=== PATIENT | female | born 1965 | race Caucasian/White ===

== ENCOUNTER 2019-02-22 08:27 | Inpatient (IN) | payer MEDICARE, SELFPAY ==
[2019-02-22] MEDS ORDERED: Ondansetron ODT 4 MG TAB SL PRN (09:00)
[2019-02-22] MEDS ORDERED: Sodium Chloride 0.9% 1,000 ML IV SCH (09:00)
[2019-02-22] MEDS ORDERED: Ondansetron PF 4 MG/2 ML Vial IVP PRN ×2 (09:00→15:10)
[2019-02-22 09:03] LABS: Actual Bicarbonate (HCO3a) 21.3 mEq/L (22-28); Base Excess (BEa) -4.2 mEq/L (-2.0 to +3.0); CO2 Tension 40.5 mmHg (35.0-45.0); Calcium, Ionized 1.12 mmol/L (1.12-1.30); Carboxyhemoglobin (COHb) 2.2 gm% (0.0-3.0); Hemoglobin (Hb) 13.1 g/dL (12.0-16.0); O2 Tension (PaO2) 73.6 mmHg (80.0-100.0); Potassium - ABG Lab 3.79 mmol/L (3.70-5.30); pH, Arterial 7.34 (7.35-7.45)
[2019-02-22 09:04] LABS: ALV-art Gradient 25.505 (0-20); Puncture Site LRA
[2019-02-22] MEDS ORDERED: Sodium Bicarb 50 MEQ/50 ML VIAL ONE (09:17)
[2019-02-22 09:20] LABS: Bacteria/HPF None Seen HPF (None Seen); Bilirubin Negative (Negative); Blood, Urine Negative (Negative); Clarity Turbid (Clear); Glucose, Urine (Dipstick) Normal (Negative); Leukocyte Negative Leu/uL (Negative); Mucous/LPF 1+ LPF (<2+); Nitrite Negative (Negative); Protein, Urine (Dipstick) 70 mg/dL (Neg-Trace); RBC/HPF 0-3 HPF (0-3); Squamous Epithelial 0-3 HPF (0-3); Urobilinogen Normal mg/dL (Less than 2)
[2019-02-22 12:58] VITALS: BMI 35.4
[2019-02-22] MEDS ORDERED: Bisacodyl 10 MG SUPP PR PRN (15:10)
[2019-02-22] MEDS ORDERED: Acetaminophen 650 MG Suppository PR PRN (15:10)
[2019-02-22] MEDS ORDERED: hydrALAZINE 20 MG/ML VIAL SLOW IVP PRN (15:27)
[2019-02-22] MEDS ORDERED: Loratadine 10 MG TAB PO PRN (15:27)
[2019-02-22] MEDS ORDERED: Diabetic Tussin 200 MG/10 ML UDCUP PO PRN (15:27)
[2019-02-22] MEDS ORDERED: Metoclopramide HCl 10 MG/2 ML VIAL IVP PRN (15:27)
[2019-02-22] MEDS ORDERED: Sodium Chloride 0.65% Nasal 44 ML BOT EA NARE PRN (15:27)
[2019-02-22] MEDS ORDERED: Artificial Tears 18 DROP/0.9 ML EA EYE PRN (15:27)
[2019-02-22] MEDS ORDERED: Loperamide HCl 2 MG CAP PO PRN (15:27)
[2019-02-22] MEDS ORDERED: Calcium Carbonate 500 MG ChewTAB PO PRN (15:27)
[2019-02-22] MEDS ORDERED: Cepastat Lozenges 1 LOZ PO PRN (15:27)
[2019-02-22] MEDS ORDERED: Acetaminophen 325 MG TAB PO PRN (15:28)
--- NOTE | 2019-02-22 16:10 | HP ---
PRIMARY CARE PHYSICIAN: [facility]. REASON FOR ADMISSION: Acute toxic encephalopathy, Seroquel drug overdose, suicidal ideation. HISTORY OF PRESENT ILLNESS: A 54-year-old female who has underlying history of anxiety and depression. The patient took unknown amount of Seroquel at 2:00 a.m. Subsequently, the patient was somnolent, lethargic. Paramedics took her to [facility]. Over there, the patient was hypotensive, tachycardic, and drowsy. The patient was given IV fluid and subsequently at that moment transiently Levophed drip was given and her blood pressure improved. Subsequently, the patient was transferred to our emergency room, her blood pressure was improved to 100. She had Herrera catheter done at [facility]. The patient was admitted to [facility]. I saw this patient at bedside. The patient reports that she is frustrated with a lot of thing at home. She was more anxious and more depressed. She wanted to cut her life and that is why she took 6 to 7 tablets of Seroquel 400 mg. when I saw this patient, at that time, her blood pressure has been improved. She was more alert. She had routine blood test done at [facility] as well as in our emergency room. All reviewed by me. The patient has bedside sitter and she is in ICU at this point. REVIEW OF SYSTEMS: CONSTITUTIONAL: Negative for weight loss or gain, ability to conduct usual activities. SKIN: Negative for rash, itching. EYES: Negative for double vision, pain. ENT/MOUTH: Negative for nose bleeding, neck stiffness, pain, tenderness. CARDIOVASCULAR: Negative for palpitations, dyspnea on exertion, orthopnea. RESPIRATORY: Negative for shortness of breath, wheezing, cough, hemoptysis, fever or night sweats. GASTROINTESTINAL: Negative for poor appetite, abdominal pain, heartburn, nausea, vomiting, constipation, or diarrhea. GENITOURINARY: Negative for urgency, frequency, dysuria, nocturia. MUSCULOSKELETAL: Negative for pain, swelling. NEUROLOGIC/PSYCHIATRIC: Negative for anxiety, depression. ALLERGY/IMMUNOLOGIC: Negative for skin rash, bleeding tendency. Please see my HPI for pertinent positives and negatives. All other review of systems reviewed and negative except as mentioned in HPI. PAST MEDICAL HISTORY: Hypothyroidism, gastroesophageal reflux disease, chronic hepatitis C, hypertension, dyslipidemia, rheumatoid arthritis, degenerative joint disease, COPD, CKD stage 2. PAST SURGICAL HISTORY: Left AKA, ACL repair, left arm replantation, , hysterectomy. PAST PSYCHIATRIC HISTORY: Anxiety and depression. SOCIAL HISTORY: The patient is , lives at home with her . She drinks alcohol socially. She smokes about half pack per day. FAMILY HISTORY: No strong family history of premature coronary artery disease, stroke, or cancer. ALLERGIES: DEMEROL, GABAPENTIN. CURRENT HOME MEDICATIONS: 1. Albuterol sulfate two puffs q.6 hourly. 2. Clonazepam 1 mg daily. 3. Flexeril 10 mg three times daily p.r.n. 4. Nystatin topical application b.i.d. 5. Seroquel. PHYSICAL EXAMINATION: VITAL SIGNS: Currently, blood pressure 122/67, pulse 103, respiratory rate 20, temperature 96.8, saturation 100% on room air. Weight 92.5 kg. GENERAL: The patient is currently anxious, alert, awake, follows commands. No obvious acute distress. HEENT: Head; normocephalic, atraumatic. Eyes; pupils round, reactive to light. Extraocular muscle intact. ENT; oropharynx within normal limits. Moist mucous membranes. No oral lesion. No pharyngeal erythema. No exudate. NECK: Supple. No JVD. No thyromegaly. No carotid bruit. LUNGS: Clear to auscultation without any rhonchi or rales. CARDIAC: S1, S2. Regular. Slight tachycardia. No murmur. No gallop. No rub. ABDOMEN: Soft. Bowel sounds present. Nontender. Nondistended. No organomegaly. No mass. No suprapubic tenderness. BACK: Unremarkable. No CVA tenderness. EXTREMITIES: Upper extremities; passive movement of all joints are normal. Lower extremities; left AKA. Right lower extremity within normal limit. NEUROLOGIC: Nonfocal examination. SKIN: No skin rash. HEMATOLOGICAL SYSTEM: No lymphadenopathy. PSYCHIATRIC: Anxious affect. SIGNIFICANT LABORATORY DATA: EKG showing normal sinus rhythm, slightly prolonged QT interval. ABG; pH 7.34, CO2 of 40.5, O2 of 73.6, bicarb 21.3, saturation 94.1%. Urinalysis unremarkable. [facility] record completely reviewed. Urine drug screen positive for amphetamine, cocaine. Glucose 110, BUN 16, creatinine 1.18, sodium 140, potassium 3.8, chloride 104, carbon dioxide 24, calcium 9.2, alkaline phosphatase 93, AST 54, ALT 104, albumin 4.0. Tylenol less than 3. Salicylate less than 5. Alcohol level 11. Troponin negative. WBC 9.8, hemoglobin 13.4, platelet 226. Chest x-ray based on my review, no acute cardiopulmonary process. EMERGENCY ROOM COURSE: The patient is given IV fluid and dopamine and Levophed. ASSESSMENT: 1. Suicidal ideation. 2. Intentional drug overdose due to suicidal attempt. 3. Hypotension, resolved. 4. Acute toxic encephalopathy, resolved. 5. Anxiety and depression. 6. Chronic obstructive pulmonary disease. 7. Tobacco abuse disorder. 8. Left above-knee amputation, status. PLAN: Close observation in IMCU. If the patient remains vitals sears stable, then we will consider transferring her out to medical floor. The patient will need bedside sitter. We will monitor on telemetry floor. Her EKG is unremarkable. We will monitor on telemetry floor. If the patient remained stable, then we will consider MHMR consultation and the patient may need placement in inpatient psychiatric facility. The patient is given counseling to avoid polysubstance abuse. Deep venous thrombosis prophylaxis, Lovenox 40 mg subcu daily. GI prophylaxis, Pepcid 20 mg p.o. b.i.d. CODE STATUS: The patient is full code. DISPOSITION PLAN: Based on clinical course, plan of care discussed with the patient in detail. Job ID: [id number]
[2019-02-22] MEDS: Sodium Chloride 0.9% 1,000 ML IV SCH (20:29)
[2019-02-22] MEDS: Famotidine 20 MG TAB PO SCH (20:30)
[2019-02-22] MEDS ORDERED: Famotidine/PF 20 mg/2ml Vial SLOW IVP SCH (21:00)
[2019-02-23] MEDS: Nicotine 7 MG PATCH TD SCH ×3 (00:58→10:03)
[2019-02-23] MEDS: Sodium Chloride 0.9% 1,000 ML IV SCH (01:10)
[2019-02-23] MEDS ORDERED: Ibuprofen 600 MG TAB PO SCH (04:00)
[2019-02-23] MEDS ORDERED: Cyclobenzaprine 10 MG TAB PO SCH (04:00)
[2019-02-23 04:39] LABS: #Eosinphils 0.4 thou/uL (0.0-0.7); #Lymphocytes 3.2 thou/uL (1.20-3.40); #Monocytes 0.6 thou/uL (0.11-0.59); #Neutrophils 3.3 thou/uL (1.40-6.50); %Basophils 0.6 % (0.0-1.0); %Eosinophils 5.7 % (0.0-10.0); %Lymphocytes 42.2 % (21.0-51.0); %Monocytes 7.8 % (0.0-10.0); %Neutrophils 43.7 % (42.0-75.0); Hemoglobin 12.5 g/dL (12.0-16.0); Mean Corpuscular Hemoglobin 31.2 pg (27.0-31.0); Mean Corpuscular Volume 91.8 fL (78.0-98.0); Mean Platelet Volume 7.3 fL (7.4-10.4); Platelet Count 197 thou/uL (130-400); RBC Distribution Width 12.5 % (11.5-14.5); White Blood Cell (WBC) Count 7.5 thou/uL (4.8-10.8)
[2019-02-23 04:52] LABS: ALT (SGPT) 67 U/L (8-55); AST (SGOT) 31 U/L (5-34); Albumin 3.5 g/dL (3.5-5.0); Alkaline Phosphatase 83 U/L (40-150); Anion Gap 8 mmol/L (10-20); BUN (Urea Nitrogen) 16 mg/dL (9.8-20.1); Bilirubin, Total 0.4 mg/dL (0.2-1.2); Calc. Creatinine Clearance 117 mL/min (70-130); Calcium 8.8 mg/dL (7.8-10.44); Carbon Dioxide 23 mmol/L (22-29); Chloride 113 mmol/L (98-107); Estimated GFR-MDRD 73; Globulin 2.4 g/dL (2.4-3.5); Glucose 109 mg/dL (70-105); Protein, Total 5.9 g/dL (6.0-8.3); Sodium 140 mmol/L (136-145)
[2019-02-23] MEDS: Enoxaparin Sodium 40 MG/0.4 ML SYRINGE SC SCH (08:52)
[2019-02-23] MEDS: Famotidine 20 MG TAB PO SCH ×2 (08:53→20:27)
--- NOTE | 2019-02-23 09:00 | PRG ---
DATE OF SERVICE: 02/23/2019 SUBJECTIVE: María Frank is a 54-year-old female who took an overdose of Seroquel. This morning, she is no longer encephalopathic. No respiratory distress. Except of some back pain, she is better. OBJECTIVE: VITAL SIGNS: Temperature is 97, pulse is 90, blood pressure 164/110, saturations 98% on room air. GENERAL: She is sitting up on side of the bed, eating breakfast. CHEST: No wheezing or crackles. CARDIAC: Normal S1, S2. No gallops. ABDOMEN: Soft. ASSESSMENT: Presumed overdose on Seroquel. Encephalopathy resolved. PLAN: She can be transferred out of the ICU. Probably needs counseling. Minimize sedation. Discontinue IV fluids. Job ID: [id number]
--- NOTE | 2019-02-23 09:43 | CON ---
DATE OF CONSULTATION: HISTORY OF PRESENT ILLNESS: María Frank is a 54-year-old, morbidly obese female, 206 pounds, 5 feet 4 inches, BMI greater than 30, who apparently was transferred from ER in [place] to a local ER over here with a diagnosis of overdose on Seroquel. Apparently 2 clock in the morning, she took what appears to be 12 tablets of 400 mg Seroquel, found out, call 911. She was taken to the ER. She is unable to be transferred to another hospital associated with [facility]. She was, therefore, sent to [facility], she is now in the ICU. She is a little bit more responsive, awake. She wanted to have some ice chips. Initial vital signs, sinus tachycardia, blood pressure 105/70, responsive to pain. PAST MEDICAL HISTORY: Hypothyroidism, reflux, hepatitis C, hyperlipidemia, hypertension, rheumatoid arthritis, DJD COPD, asthma, tobacco abuse, and renal failure. PAST SURGICAL HISTORY: ACL repair, left AK amputation, left arm replantation, , hysterectomy, anxiety, and depression. SOCIAL HISTORY: Tobacco half pack a day, substance abuse, alcohol abuse. ALLERGIES: DEMEROL AND GABAPENTIN. HOME MEDICATIONS: 1. Albuterol. 2. Clonazepam 1 mg. 3. Flexeril 10. 4. Nystatin. REVIEW OF SYSTEMS: Otherwise unremarkable. PHYSICAL EXAMINATION: VITAL SIGNS: Blood pressure 113/76, sats are 98% on room air, pulse 103, and respiratory rate 13. GENERAL: She is awake, alert, and responsive. She has a left BK amputation. In right leg, no edema. Moves. Obese. CHEST: No wheezing or crackles. CARDIAC: Normal S1 and S2. No gallops. ABDOMEN: No masses. LABORATORY DATA: A pO2 was 73, pCO2 of 40, pH 7.34. Her lytes were normal in [place]. Additional lab shows chest x-ray questionable infiltrate. White count 9000, hemoglobin and hematocrit are 13 and 40. Creatinine was minimally 1.18 elevated. AST 54, ALT 104. She had a urine drug screen, which I am told had evidence of methamphetamine and cocaine. I have been post knee unable to see the report, which I will verify once I have been able to see the report. IMPRESSION: 1. Metabolic encephalopathy secondary to overdose Seroquel. 2. Substance abuse, cocaine and methamphetamine. 3. Multiple medical problems with extensively well outlined history of depression, history of chronic obstructive pulmonary disease, history of asthma, and history of rheumatoid arthritis. Pulmonary sears, avoid at this time any excessive sedation. Continue IV fluids. Supportive care. We will try and obtain MR consult. Consultation note, 70 minutes, 50% direct patient care. Job ID: [id number]
[2019-02-23] MEDS: HYDROcodone/Acetaminophen 5/325 mg Tablet PO PRN ×2 (10:22→17:59)
--- NOTE | 2019-02-23 12:48 | DIS ---
DATE OF ADMISSION: 02/22/2019 DATE OF DISCHARGE: 02/23/2019 PRIMARY CARE PHYSICIAN: [facility] Call Admission. DISCHARGE DISPOSITION: Home versus Psych after [facility] evaluation. PRIMARY DISCHARGE DIAGNOSES: 1. Intentional drug overdose. 2. Suicidal ideation, resolved. 3. Hypotension, resolved. SECONDARY DISCHARGE DIAGNOSES: 1. Anxiety and depression. 2. History of left above-knee amputation. PRIMARY PROCEDURE/OPERATION: None. RADIOLOGICAL INVESTIGATION: None. SIGNIFICANT LABORATORY DATA: WBC 7.5, hemoglobin 12.5, and platelets 197. Sodium 140, potassium 4.0, BUN 16, creatinine 0.80, calcium 8.8, AST 31, ALT 67, alkaline phosphatase 83, albumin 3.5. Urinalysis unremarkable. DISCHARGE MEDICATIONS: 1. Albuterol inhalation b.i.d. as needed. 2. Clonazepam 1 mg daily. 3. Flexeril 10 mg t.i.d. p.r.n. CONTRAINDICATION: None. CODE STATUS: Full code. INPATIENT PRIMARY MONTESSORI TEACHER: Dr. Coleman saw this patient while in ICU. [facility] team was consulted. TEST RESULTS PENDING ON DISCHARGE: None. ALLERGIES: GABAPENTIN AND MEPERIDINE. DISCHARGE PLAN: Posthospital, the patient will follow up with primary care physician. HOSPITAL COURSE: This is a 54-year-old female, who was initially evaluated at [facility]. The patient had intentional drug overdose. The patient took some pills of Seroquel. She had positive urine drug screen including cocaine and amphetamine. She was hypotensive at [facility]. She was given IV fluid, and subsequently, she was transferred to our hospital. She was admitted in ICU, but she did not require any vasopressor support. Her blood pressure had already improved and she already more alert when she arrived to our hospital. Initially, at [facility], she was lethargic, but she was more alert while in the hospital. The patient was no longer suicidal. The patient had bedside sitter. We observed overnight and today, we transferred her to medical floor. We are consulting [facility] for evaluation. I have seen and examined the patient bedside today. She is completely normal. She does not feel any suicidal ideation and she does not want to go any kind of psychiatric facility. If [facility] clears, then we will consider discharging her home later on today, she is medically stable. Her examination is unchanged from yesterday. She will continue all her previous medications. The patient's counseling was provided. Job ID: [id number]
--- NOTE | 2019-02-23 13:27 | PDOC.HOSPP ---
- Subjective Subjective: Patient seen and examined. No new complaints. No overnight events - Objective Vital Signs & Weight: Vital Signs (12 hours) Temp Pulse Resp BP BP Pulse Ox 02/23/19 12:19 98 02/23/19 11:35 97.8 F 99 20 162/83 H 98 02/23/19 11:11 97.9 F 77 18 144/88 H 97 02/23/19 11:08 101 H 02/23/19 07:36 97.8 F 100 02/23/19 07:09 94 L 02/23/19 07:00 97.7 F Weight Weight 206 lb 12.697 oz Most Recent Monitor Data Heart Rate from ECG 83 NIBP 160/117 NIBP BP-Mean 131 Respiration from ECG 25 SpO2 98 I&O: 02/22/19 02/23/19 02/24/19 06:59 06:59 06:59 Intake Total 2742 700 Output Total 1975 50 Balance 767 650 Result Diagrams: 02/23/19 04:24 02/23/19 04:24 EKG Reviewed by me: Yes ROS - Review of Systems All systems: All other ROS were reviewed and found negative. Eyes: denies: pain, vision change, conjunctivae inflammation, eyelid inflammation, redness, other ENT: denies: ear pain, ear discharge, nose pain, nose discharge, nose congestion , mouth pain, mouth swelling, throat pain, throat swelling, other Respiratory: denies: cough, dry, shortness of breath, hemoptysis, SOB with excertion, pleuritic pain, sputum, wheezing, other Cardiovascular: denies: chest pain, palpitations, orthopnea, paroxysmal noc. dyspnea, edema, light headedness, other Gastrointestinal: denies: nausea, vomitting, abdominal pain, diarrhea, constipation, melena, hematochezia, other Genitourinary: denies: dysuria, frequency, incontinence, hematuria, retention, other Musculoskeletal: denies: neck pain, shoulder pain, arm pain, back pain, hand pain, leg pain, foot pain, other - Medication Medications: Active Medications Generic Name Dose Route Start Last Admin Trade Name Freq PRN Reason Stop Dose Admin Acetaminophen 650 mg 02/22/19 15:28 02/23/19 04:12 Tylenol PO 650 mg Q6H PRN Administration Fever>101/(Mi/Mod/Sev) Pain Hydrocodone Bitart/Acetaminophen 1 tab 07/24/19 15:27 02/23/19 10:22 Ethel 5/325 PO 1 tab Q4H PRN Administration Moderate Pain (4-6) Albuterol/Ipratropium 3 ml 02/22/19 19:00 02/23/19 13:25 Duoneb NEB Not Given L5IA-ML EDWINA Enoxaparin Sodium 40 mg 02/23/19 09:00 02/23/19 08:52 Lovenox SC 40 mg 0900 EDWINA Administration Famotidine 20 mg 02/22/19 21:00 02/23/19 08:53 Pepcid PO Not Given BID EDWINA Hydralazine HCl 10 mg 02/22/19 15:27 02/23/19 11:08 Apresoline SLOW IVP 10 mg Q4H PRN Administration SBP > 180 and HR < 70 Nicotine 7 mg 02/23/19 09:00 02/23/19 10:03 Nicoderm Patch TD Not Given Q24HR EDWINA - Exam NAD, awake alert Eye: PERRL, anicteric sclera ENT: normocephalic atraumatic, no oropharyngeal lesions Neck: symmetric, no JVD Heart: RRR, no murmur, no gallops Respiratory: CTAB, no wheezes, no rales, no ronchi Gastrointestinal: soft, non-tender, non-distended, normal bowel sounds Extremities: no cyanosis (left aka) Skin: normal turgor, no lesions Neurological: CN's grossly intact, no focal deficits Musculoskeletal: normal tone, normal strength Psychiatric: normal affect, normal behavior Hosp A/P (1) Hypotension Status: Acute (2) Intentional drug overdose Code(s): T50.902A - POISONING BY UNSP DRUG/MEDS/BIOL SUBST, SELF-HARM, INIT Status: Acute (3) Anxiety and depression Code(s): F41.9 - ANXIETY DISORDER, UNSPECIFIED; F32.9 - MAJOR DEPRESSIVE DISORDER, SINGLE EPISODE, UNSPECIFIED Status: Chronic (4) History of left above knee amputation Code(s): Z89.612 - ACQUIRED ABSENCE OF LEFT LEG ABOVE KNEE Status: Chronic (5) Obesity (BMI 30.0-34.9) Code(s): E66.9 - OBESITY, UNSPECIFIED Status: Chronic - Plan old records reviewed/req medication reviewed as below symptomatic treatment see my discharge jose j
[2019-02-23] MEDS: Senokot S 8.6-50 MG TAB PO PRN (22:44)
[2019-02-24] MEDS: HYDROcodone/Acetaminophen 5/325 mg Tablet PO PRN ×2 (02:22→08:08)
[2019-02-24] MEDS: Famotidine 20 MG TAB PO SCH (07:59)
[2019-02-24] MEDS: Enoxaparin Sodium 40 MG/0.4 ML SYRINGE SC SCH (07:59)
[2019-02-24] MEDS: Senokot S 8.6-50 MG TAB PO PRN (08:03)
[2019-02-24] MEDS: Nicotine 7 MG PATCH TD SCH (08:05)
[2019-02-24 08:27] VITALS: BP 136/84; TEMP 97.6
== END 2019-02-24 11:50 | DRG 917 ==
LOC: ERS 08:27 → CCU 10:54 → T4-B 02-23 07:16
PROVIDERS: ADMIT Internal Medicine; ATTEND Internal Medicine
DX: T43.592A Poisoning by other antipsychotics and neuroleptics, intentional self-harm, initial encounter (principal); G92 Toxic encephalopathy; E03.9 Hypothyroidism, unspecified; K21.9 Gastro-esophageal reflux disease without esophagitis; B19.20 Unspecified viral hepatitis C without hepatic coma; I12.9 Hypertensive chronic kidney disease with stage 1 through stage 4 chronic kidney disease, or unspecified chronic kidney disease; E78.5 Hyperlipidemia, unspecified; M06.9 Rheumatoid arthritis, unspecified; M19.90 Unspecified osteoarthritis, unspecified site; J44.9 Chronic obstructive pulmonary disease, unspecified; N18.2 Chronic kidney disease, stage 2 (mild); I95.9 Hypotension, unspecified; F41.9 Anxiety disorder, unspecified; F32.9 Major depressive disorder, single episode, unspecified; F17.210 Nicotine dependence, cigarettes, uncomplicated; Z90.710 Acquired absence of both cervix and uterus; Z89.612 Acquired absence of left leg above knee; Z88.8 Allergy status to other drugs, medicaments and biological substances
CPT/HCPCS: 36415; 80053; 81003; 81015; 82805; 85025; 93005; 93010; J0360; J1650; J7620